=== PATIENT | male | born 1995 | race Caucasian/White ===

== ENCOUNTER 2018-02-13 21:39 | Emergency (ER) | payer OTHER ==
[~2018-02-13] VITALS: Ht 190.5 cm; Wt 122.5 kg
[2018-02-13] MEDS ORDERED: KEFLEX500 MG PO (23:26)
== END 2018-02-13 23:31 | disposition home or self-care (01) ==
LOC: ED 21:39
DX: L03.211 Cellulitis of face (principal); J45.909 Unspecified asthma, uncomplicated; Z88.0 Allergy status to penicillin
CPT/HCPCS: 99283

== ENCOUNTER 2020-08-31 13:46 | Emergency (ER) | payer OTHER ==
[~2020-08-31] VITALS: Ht 190.5 cm; Wt 127.0 kg
[~2020-08-31 13:46] MED LIST: KEFLEX500 MG PO
[2020-08-31] MEDS ORDERED: CEPHALEXIN500 M1 PO (14:20)
== END 2020-08-31 14:52 | disposition home or self-care (01) ==
LOC: ED 13:46
DX: L03.211 Cellulitis of face (principal); L02.01 Cutaneous abscess of face; J45.909 Unspecified asthma, uncomplicated; Z88.0 Allergy status to penicillin
CPT/HCPCS: 99283

== ENCOUNTER 2020-09-09 09:21 | Emergency (ER) | payer OTHER ==
[~2020-09-09] VITALS: Ht 190.5 cm; Wt 145.6 kg
[~2020-09-09 09:21] MED LIST changes: +CEPHALEXIN500 M1 PO
--- OUTSIDE RECORDS SUMMARY | 2020-09-09 09:26 | XMS ---
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 Ange has no Care Guidelines for this patient. [facility]12 MO.) [facility] NOTE: Visits indicate total known visits. ED/C VISIT TRACKING (12 MO.) [facility]2020 09[facility] COMPLAINT: - R THUMB/WRIST INJURY 08/31/2020 13:[address] [facility] TYPE: Emergency COMPLAINT: - CELLULITIS DIAGNOSES: - Unspecified asthma, uncomplicated - Cellulitis of face - Cutaneous abscess of face - Allergy status to penicillin INPATIENT VISIT TRACKING (12 MO.) No inpatient visits to display in this time frame [email or web address]
== END 2020-09-09 13:40 | disposition home or self-care (01) ==
LOC: ED 09:21
DX: S53.401A Unspecified sprain of right elbow, initial encounter (principal); S63.501A Unspecified sprain of right wrist, initial encounter; W01.0XXA Fall on same level from slipping, tripping and stumbling without subsequent striking against object, initial encounter; J45.909 Unspecified asthma, uncomplicated; Z88.0 Allergy status to penicillin; Y99.0 Civilian activity done for income or pay
CPT/HCPCS: 73080; 73110; 99283-25